=== PATIENT | male | born 1950 | race Caucasian/White ===

== ENCOUNTER → 2019-08-01 | Day surgery (SDC) | payer OTHER | LOC: MSO 09:40 | DX: Z12.11 Encounter for screening for malignant neoplasm of colon (principal); K63.5 Polyp of colon; K62.1 Rectal polyp; I10 Essential (primary) hypertension; E11.9 Type 2 diabetes mellitus without complications; Z79.84 Long term (current) use of oral hypoglycemic drugs; Z86.010 Personal history of colon polyps; Z79.52 Long term (current) use of systemic steroids; E78.00 Pure hypercholesterolemia, unspecified | CPT/HCPCS: 00811; J2704; J7030 ==